=== PATIENT | female | born 1985 | race Caucasian/White ===

== ENCOUNTER 2018-09-09 04:51 | Emergency (ER) | payer OTHER ==
[~2018-09-09] VITALS: Ht 170.2 cm; Wt 77.1 kg
--- NOTE | 2018-09-09 05:34 | PHYS DOC ---
SANTOS PRUITT MD 09/09/18 0534: Adult General Chief Complaint Chief Complaint Pain HPI HPI 33 years old female presented emergency department with right lower quadrant abdominal pain started last night has been getting worse 7 out of 10 sharp constant pain Review of Systems Review of Systems Constitutional: Denies fever or chills [] Eyes: Denies change in visual acuity, redness, or eye pain [] HENT: Denies nasal congestion or sore throat [] Respiratory: Denies cough or shortness of breath [] Cardiovascular: No additional information not addressed in HPI [] GI: Denies vomiting, bloody stools or diarrhea [] : Denies dysuria or hematuria [] Musculoskeletal: Denies back pain or joint pain [] Integument: Denies rash or skin lesions [] Neurologic: Denies headache, focal weakness or sensory changes [] Endocrine: Denies polyuria or polydipsia [] All other systems were reviewed and found to be within normal limits, except as documented in this note. Allergies Allergies Allergies Coded Allergies Type Severity Reaction Last Updated Verified No Known Drug Allergies 09/09/18 No Physical Exam Physical Exam Constitutional: Well developed, well nourished, no acute distress, non-toxic appearance. [] HENT: Normocephalic, atraumatic, bilateral external ears normal, oropharynx moist, no oral exudates, nose normal. [] Eyes: PERRLA, EOMI, conjunctiva normal, no discharge. [] Neck: Normal range of motion, no tenderness, supple, no stridor. [] Cardiovascular:Heart rate regular rhythm, no murmur [] Lungs & Thorax: Bilateral breath sounds clear to auscultation [] Abdomen: Bowel sounds normal, soft, +tenderness, and the right lower quadrant no masses, no pulsatile masses. [] Skin: Warm, dry, no erythema, no rash. [] Back: No tenderness, no CVA tenderness. [] Extremities: No tenderness, no cyanosis, no clubbing, ROM intact, no edema. [] Neurologic: Alert and oriented X 3, normal motor function, normal sensory function, no focal deficits noted. [] Psychologic: Affect normal, judgement normal, mood normal. [] Current Patient Data Vital Signs Vital Signs Date Time Temp Pulse Resp B/P (MAP) Pulse Ox O2 Delivery O2 Flow Rate FiO2 09/09/18 05:00 97.5 62 18 97 Room Air Lab Results Laboratory Tests Test 09/09/18 05:07 POC Urine HCG, Qualitative hcg negative (Negative) EKG EKG [] Radiology/Procedures Radiology/Procedures [] Course & Med Decision Making Course & Med Decision Making Pertinent Labs and Imaging studies reviewed. (See chart for details) Patient transfer to another physician at 7 AM [] Final Impression Final Impression [] Problems: (1) Abdominal pain Qualifiers: Qualified Codes: R10.30 - Lower abdominal pain, unspecified Dragon Disclaimer Dragon Disclaimer This electronic medical record was generated, in whole or in part, using a voice recognition dictation system. VERNA NORWOOD MD 09/09/18 0658: Adult General Radiology/Procedures Radiology/Procedures [address] [address] IMAGING REPORT Signed PATIENT: MALINDA HOLMAN ACCOUNT: [id number] : 1985 LOCATION: ER AGE: 33 SEX: F EXAM STATUS: REG ER ORD. PHYSICIAN: SANTOS PRUITT MD REASON: RLLQ pain PROCEDURE: CT ABD PELV W/ IV CONTRST ONLY CT abdomen and pelvis with contrast: Reason for examination: Sharp right lower quadrant pain with gradual onset. Helical images were obtained through the abdomen pelvis with intravenous administration of 75 cc Omnipaque 300. Reconstruction was performed in sagittal and coronal planes. Exposure: One or more of the following individualized dose reduction techniques were utilized for this examination: 1. Automated exposure control 2. Adjustment of the mA and/or kV according to patient size 3. Use of iterative reconstruction technique. The lung bases are clear. The heart size is normal with no pericardial effusion. No abnormality seen at the liver, gallbladder, pancreas, adrenal glands or spleen. The abdominal aorta and inferior vena cava show no acute abnormalities. The kidneys show no renal masses, renal calculi, hydronephrosis or evidence of obstructive uropathy. No abnormality seen at the appendix. The colon shows no diverticulosis or diverticulitis or wall thickening. The small intestinal tract shows no abnormally dilated loops of bowel or thickened lemons and no obstruction. No abnormality seen at the bladder. There does appear to be hypodense uterine mass measuring approximately 5.4 x 4.7 x 4.5 cm in greatest dimensions. This can be further evaluated with ultrasound. There appear to be follicles in the ovaries bilaterally. No free pelvic fluid is present. IMPRESSION: 5.4 x 4.7 x 4.5 cm mass in the uterine fundus. No abnormality at the appendix. No obstructive uropathy seen. Electronically signed by: Doris Vizcarra MD (09/09/2018 6:38 AM) [facility] DICTATED AND SIGNED BY: DORIS VIZCARRA MD DATE: 09/09/18629 CC: SANTOS PRUITT MD; VERNA NOWROOD MD; ADRIAN AYERS MD ~ Course & Med Decision Making Course & Med Decision Making Patient care transferred to sd by Dr. Hylton at 0600. Evaluation of patient in ER showed 33-year-old female patient with complaining of gradual onset of right lower quadrant pain since last night but she was at work with nausea and anorexia without fever and chills, urinary symptoms, diarrhea and constipation, injury and history of the same pain. Patient had mild deep tenderness and guarding in right lower quadrant. Labs was unremarkable. CT of abdomen and pelvis shows appendicitis or other acute finding. Patient had a uterine mass of 5 x 4 cm and patient states she had the same mass as a fibroma during 3 years ago size of 7 cm. Patient instructed to follow-up with her [employer] regarding uterine Fibroma. fibroma. Final Impression Final Impression Right lower quadrant pain Uterine fibroma Departure Time of Disposition: 06:56 Disposition: 01 HOME, SELF-CARE Condition: IMPROVED Patient Instructions: Abdominal Pain Additional Instructions: Drink plenty of liquids Follow-up with your primary care physician in 3-5 days Return to ER if not getting better Prescriptions SANTOS Campbell MD Sep 09, 2018 05:34 VERNA NORWOOD MD Sep 09, 2018 06:58
[2018-09-09] MEDS ORDERED: IV NORMAL SALINE 1,000ML 1,000 ML IV ONE (05:45)
[2018-09-09] MEDS ORDERED: ONDANSETRON PF 4 MG/2 ML VIAL. IV ONE (05:45)
[2018-09-09] MEDS ORDERED: CONTRAST GIVEN MC PRN (05:45)
[2018-09-09] MEDS ORDERED: MORPHINE SULFATE 4 MG/ML DISP.SYRIN. IV ONE (05:45)
[2018-09-09] MEDS ORDERED: IOHEXOL 300 MG/ML 75 ML VIAL. IV ONE (06:00)
[2018-09-09 06:08] LABS: BACTERIA,URINE FEW /HPF (0-FEW); BILIRUBIN,URINE NEG (NEG); CLARITY,URINE HAZY; COLOR,URINE YELLOW; GLUCOSE,URINE NEG (NEG); NITRITE,URINE NEG (NEG); SQUAMOUS EPITHELIAL CELL,UR MOD /LPF; UROBILINOGEN,URINE 1 mg/dL (0.2 mg/dL)
[2018-09-09 06:14] LABS: ALBUMIN 3.9 g/dL (3.4-5.0); ALBUMIN/GLOBULIN RATIO 1.1 (1.0-1.7); BASO % 0 % (0-3); CALCIUM 8.9 mg/dL (8.5-10.1); CREATININE 0.8 mg/dL (0.6-1.0); EOS # 0.1 x10^3/uL (0.0-0.7); EOS % 2 % (0-3); GFR 83.1; HEMATOCRIT 36.4 % (36.0-47.0); HEMOGLOBIN 12.1 g/dL (12.0-15.5); LYMPH # 2.2 x10^3/uL (1.0-4.8); LYMPH % 29 % (24-48); MEAN CORPUSCULAR HEMOGLOBIN 30 pg (25-35); MEAN CORPUSCULAR HGB CONC 33 g/dL (31-37); MEAN CORPUSCULAR VOLUME 90 fL (79-100); MONO # 0.6 x10^3/uL (0.0-1.1); MONO % 8 % (0-9); NEUT # 4.6 x10^3uL (1.8-7.7); NEUT % 61 % (31-73); PLATELET COUNT 254 x10^3/uL (140-400); POTASSIUM 3.6 mmol/L (3.5-5.1); RED BLOOD COUNT 4.04 x10^6/uL (3.50-5.40); RED CELL DISTRIBUTION WIDTH 15.1 % (11.5-14.5); TOTAL BILIRUBIN 0.4 mg/dL (0.2-1.0); TOTAL PROTEIN 7.3 g/dL (6.4-8.2); WHITE BLOOD COUNT 7.6 x10^3/uL (4.0-11.0)
--- NOTE | 2018-09-09 06:42 | RAD ---
CT abdomen and pelvis with contrast: Reason for examination: Sharp right lower quadrant pain with gradual onset. Helical images were obtained through the abdomen pelvis with intravenous administration of 75 cc Omnipaque 300. Reconstruction was performed in sagittal and coronal planes. Exposure: One or more of the following individualized dose reduction techniques were utilized for this examination: 1. Automated exposure control 2. Adjustment of the mA and/or kV according to patient size 3. Use of iterative reconstruction technique. The lung bases are clear. The heart size is normal with no pericardial effusion. No abnormality seen at the liver, gallbladder, pancreas, adrenal glands or spleen. The abdominal aorta and inferior vena cava show no acute abnormalities. The kidneys show no renal masses, renal calculi, hydronephrosis or evidence of obstructive uropathy. No abnormality seen at the appendix. The colon shows no diverticulosis or diverticulitis or wall thickening. The small intestinal tract shows no abnormally dilated loops of bowel or thickened lemons and no obstruction. No abnormality seen at the bladder. There does appear to be hypodense uterine mass measuring approximately 5.4 x 4.7 x 4.5 cm in greatest dimensions. This can be further evaluated with ultrasound. There appear to be follicles in the ovaries bilaterally. No free pelvic fluid is present. IMPRESSION: 5.4 x 4.7 x 4.5 cm mass in the uterine fundus. No abnormality at the appendix. No obstructive uropathy seen. Electronically signed by: Doris Delong MD (09/09/2018 6:38 AM) [facility]
[2018-09-09] MEDS ORDERED: ONDA4TAB7 PO (07:00)
[2018-09-09] MEDS ORDERED: HYDR-3165 PO (07:00)
[2018-09-09 07:07] VITALS: BP 118/69
== END 2018-09-09 07:10 | disposition home or self-care (01) ==
LOC: ER 04:51
DX: D28.2 Benign neoplasm of uterine tubes and ligaments (principal)
CPT/HCPCS: 36415; 74177; 80053; 81001; 81025; 83690; 85025; 96374; 96375; 99284; J2270; J2405; Q9967; J7030